=== PATIENT | male | born 1960 | race Caucasian/White ===

== ENCOUNTER 2024-10-19 18:58 | Emergency (ER) | payer SELFPAY ==
[2024-10-19 18:59] VITALS: BP 118/79; PULSE 71; RESP 18; TEMP 36.3; O2SAT 97
--- NOTE | 2024-10-19 19:50 | RAD_ITS ---
STUDY: X-RAY - LEFT KNEE REASON FOR EXAM: Male, 64 years old. pain TECHNIQUE: 4 view(s) of the knee. COMPARISON: None. FINDINGS: Normal visualized distal femur. Normal visualized proximal tibia and fibula. Normal proximal tibiofibular articulation. Normal medial femorotibial compartment. Normal lateral femorotibial compartment. Normal patellofemoral articulation. There is a soft tissue prominence in the suprapatellar region suggesting a small volume joint effusion. The soft tissue structures are unremarkable. RAD/Knee 4 or More Views IMPRESSION: Effusion, as described above. MRI may be useful. Electronically Signed: Pablo James MD at 21:00 EST ,
--- NOTE | 2024-10-19 21:05 | EX.ED.DYSGE1 ---
HPI History of Present Illness Chief Complaint: Lower Extremity Injury Detail of Chief Complaint: Fall with twisting mechanism injury left knee Informant: patient Onset/Context/Timing Onset: Today and Hours Context: Sudden Onset Timing: Continuous Quality: Pain and swelling Location: Left knee Current Severity: Mild Maximum Severity: Mild Worsened by: Walking quickly Relieved by: Remaining still Associated Symptoms Associated Symptoms: None Narrative Narrative: Patient is a 64-year-old gentleman. He slipped. He fell with his leg going under his thigh. He developed pain. He had immediate swelling of his knee. This occurred a couple hours prior to presentation. He denies head trauma. Denies neck pain. He denies paresthesia, anesthesia or motor weakness lower extremity. He has no prior history of trauma. His daughter apparently is a physical therapist and requested follow-up with the [facility] physician. Prior similar symptoms: No Recent Illness/Hospitalization: No PFSH PFSH Allergy/AdvReac Type Severity Reaction Status Date / Time No Known Allergies Allergy Verified 10/19/24 18:58 Social History (Updated 10/19/24 @ 21:[address] Alhaji Amaral MD) household members: none Smoking Status: Never smoker ROS ROS ED Musculoskeletal Musculoskeletal: Reports other Details: Left knee pain and swelling ; Denies arthralgias, back pain, myalgias or neck pain Neurologic Neurologic: Denies paresthesias or weakness Hematologic/Lymphatic Hematologic/Lymphatic: Reports systems reviewed and no addt'l complaints, except as documented EXAM Physical Exam Const Vital Signs: 10/19/24 18:59 Temperature 97.3 F L Temperature Source Temporal Pulse Rate 71 Respiratory Rate 18 Blood Pressure 118/79 Blood Pressure Mean 92 Pulse Ox 97 Oxygen Delivery Method Room Air Positive well nourished and well developed General Appearance ED: well developed and NAD; Negative for cyanotic, diaphoretic or pallor HEENT HEENT Narrative: Head is atraumatic normocephalic. Ears normal. Eyes PERRL and EOMs intact bilaterally Resp normal respiratory effort Cardio regular rate and regular rhythm Extremity Negative for normal to inspection Extremity Narrative: There is tenderness over the anterior left knee with swelling. There is prepatellar swelling. There is a small effusion noted. There is minimal if any discomfort with varus valgus stress testing. There is no laxity. Anton's test as well as anterior drawer test was negative. Modified Deni's test was negative. PT pulses palpable on the left. There is no abrasion or laceration noted. He is able to extend his leg to 180 degrees and hold it against gravity. He is able to bend to approximately 90 degrees. Neuro oriented x3 Psych mental status grossly normal Skin no rashes or lesions noted, no wounds and skin turgor normal General Skin Exam: Negative for jaundice or pallor MDM MDM MDM Narrative Medical decision making narrative: 4 view x-ray of the knee was obtained to evaluate for fracture versus intra-articular injury. Radiography Chest X-Ray - ED: Read by ED Physician (4 view x-ray of the knee was obtained. There is an effusion noted. There is no fracture, subluxation or dislocation. The patella is not high riding.) Diagnostic Testing: Clinical Impression(s) from Imaging Studies Knee X-Ray 10/19/24 19:50 IMPRESSION: Effusion, as described above. MRI may be useful. Electronically Signed: Pablo James MD at 21:00 EST , Treatment and Re-Evaluation :: Patient was referred to the [facility]. Images were sent by radiology to the [facility]. Patient was offered crutches which she declined. Since he is knee is not unstable knee immobilizer is not indicated. Discharge Plan Triage Chief Complaint: Lower Extremity Injury ED Provider: Alhaji Amaral Dx/Rx/DC Orders Clinical Impression: Effusion of knee joint, left, Injury due to fall Instructions: ED Knee Effusion Primary Care Provider: NOT,DEFINED Referrals: NOT,DEFINED [Primary Care Provider] - Activity Restrictions/Additional Instructions: 1. Apply ice to your knee 6 times a day 2. Call the [facility] for follow-up 3. Your x-ray images were sent to the [facility] for their review Print Language: Greenlandic Disposition Disposition: Home, Self Care
== END 2024-10-19 21:50 | disposition home or self-care (01) ==
LOC: ED 21:20
PROVIDERS: Emergency Provider Emergency Medicine; PCP Physician Assistant; Visit Provider Emergency Medicine
DX: M25.462 Effusion, left knee (principal); W01.0XXA Fall on same level from slipping, tripping and stumbling without subsequent striking against object, initial encounter
CPT/HCPCS: 73564; 99282